=== PATIENT | female | born 1975 ===

== ENCOUNTER 2021-03-24 23:06 | Emergency (ER) | payer MEDICAID ==
[2021-03-25] MEDS ORDERED: KETOROLAC 60 MG/2 ML INJ IM STA (03:08)
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
== END 2021-03-25 06:49 | disposition home or self-care (01) ==
LOC: ED 23:06
DX: S02.32XA Fracture of orbital floor, left side, initial encounter for closed fracture (principal); S02.40DA Maxillary fracture, left side, initial encounter for closed fracture; X58.XXXA Exposure to other specified factors, initial encounter; Y93.89 Activity, other specified; Y92.89 Other specified places as the place of occurrence of the external cause; Y99.8 Other external cause status
CPT/HCPCS: 70486; 96372; 99283; J1885